=== PATIENT | male | born 1955 | race Caucasian/White ===

== ENCOUNTER 2024-09-12 10:52 | Outpatient (CLI) | payer OTHER, MEDICAID ==
[2024-09-12] MEDS ORDERED: Iopamidol 370 76% 100 ML VIAL ONE (13:17)
== END 2024-09-12 10:53 | disposition home or self-care (01) ==
LOC: CT 10:52
PROVIDERS: ATTEND Internal Medicine Hematology & Oncology
DX: C22.0 Liver cell carcinoma (principal); R91.8 Other nonspecific abnormal finding of lung field; J43.2 Centrilobular emphysema; M85.88 Other specified disorders of bone density and structure, other site; N50.89 Other specified disorders of the male genital organs; N43.3 Hydrocele, unspecified; K76.9 Liver disease, unspecified; K74.60 Unspecified cirrhosis of liver; J98.11 Atelectasis; N28.1 Cyst of kidney, acquired; K57.30 Diverticulosis of large intestine without perforation or abscess without bleeding; Z98.890 Other specified postprocedural states
CPT/HCPCS: 71260; 74178; Q9967

== ENCOUNTER 2024-12-20 09:47 | Outpatient (CLI) | payer OTHER, MEDICAID ==
[2024-12-20 11:41] LABS: #Basophils 0.04 10x3/uL (0.0-0.2); %Basophils 0.7 % (0.0-1.0); %Lymphocytes 25.5 % (21.0-51.0); %Monocytes 10.7 % (0.0-10.0); %Neutrophils 59.7 % (42.0-75.0); Hematocrit 47.5 % (42.0-52.0); Hemoglobin 15.6 g/dL (14.0-18.0); Mean Corpuscular HGB CONC 32.8 g/dL (32.0-36.0); Mean Corpuscular Hemoglobin 28.1 pg (27.0-31.0); Mean Corpuscular Volume 85.4 fL (78.0-98.0); Platelet Count 140 10x3/uL (130-400); RBC Distribution Width 15.3 % (11.5-14.5); Red Blood Cell (RBC) Count 5.56 mill/uL (4.70-6.10)
[2024-12-20 11:48] LABS: ALT (SGPT) 26 U/L (Less than 45); AST (SGOT) 34 U/L (11-34); Alkaline Phosphatase 119 U/L (40-110); Anion Gap 12 mmol/L (10-20); BUN (Urea Nitrogen) 11 mg/dL (8.4-25.7); Bilirubin, Direct 0.2 mg/dL (0.1-0.3); Bilirubin, Total 0.5 mg/dL (0.3-1.2); Calc. Creatinine Clearance 0 mL/min (70-130); Calcium 9.5 mg/dL (7.8-10.44); Carbon Dioxide 25 mmol/L (23-31); Chloride 107 mmol/L (98-107); Estimated GFR 97; Glucose 91 mg/dL (80-115); Potassium 4.1 mmol/L (3.5-5.1); Protein, Total 7.3 g/dL (5.8-8.1); Sodium 140 mmol/L (136-145)
== END 2024-12-20 09:48 | disposition home or self-care (01) ==
LOC: LABBT 09:47
PROVIDERS: ATTEND Surgery
DX: Z01.812 Encounter for preprocedural laboratory examination (principal); K43.2 Incisional hernia without obstruction or gangrene
CPT/HCPCS: 80048; 80076; 85025

== ENCOUNTER 2025-06-27 12:04 | Outpatient (CLI) | payer OTHER, MEDICAID ==
[~2025-06-27 12:04] MED LIST: Iopamidol 370 76% 100 ML VIAL ONE
[2025-06-27 12:35] LABS: Estimated GFR - POC 74.0
== END 2025-06-27 12:05 | disposition home or self-care (01) ==
LOC: CT 12:04
PROVIDERS: ATTEND Urology
DX: R31.0 Gross hematuria (principal); K59.00 Constipation, unspecified; N20.0 Calculus of kidney; N28.1 Cyst of kidney, acquired; N41.1 Chronic prostatitis
CPT/HCPCS: 36415; 74178; 81001; 82565; 87077; 87086; 87186; Q9967